=== PATIENT | male | born 2000 | race Caucasian/White ===

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

== ENCOUNTER 2019-03-22 14:23 | Emergency (ER) | payer OTHER ==
[~2019-03-22] VITALS: Ht 180.3 cm; Wt 79.4 kg
[2019-03-22 14:27] VITALS: BP 130/58
[2019-03-22] MEDS ORDERED: NAPROSYN500 MG PO (16:47)
[2019-03-22] MEDS ORDERED: MEDROL DOSEPAK4 MG PO (16:47)
[2019-03-22] MEDS ORDERED: METHOCARBAMOL500 M1 PO (16:47)
== END 2019-03-22 17:24 | disposition home or self-care (01) ==
LOC: ED 14:23
DX: S29.012A Strain of muscle and tendon of back wall of thorax, initial encounter (principal); Z88.1 Allergy status to other antibiotic agents; Z88.0 Allergy status to penicillin; X50.0XXA Overexertion from strenuous movement or load, initial encounter; Y93.89 Activity, other specified; Y92.69 Other specified industrial and construction area as the place of occurrence of the external cause; Y99.9 Unspecified external cause status

== ENCOUNTER → 2019-08-04 | Outpatient (CLI) | payer OTHER ==
[~2019-08-04] MED LIST: MEDROL DOSEPAK4 MG PO; METHOCARBAMOL500 M1 PO; NAPROSYN500 MG PO
== END | disposition home or self-care (01) ==
LOC: COVID19 15:01
DX: B34.9 Viral infection, unspecified (principal); Z03.818 Encounter for observation for suspected exposure to other biological agents ruled out; Z78.9 Other specified health status

== ENCOUNTER → 2020-12-29 | Outpatient (CLI) | payer OTHER | END | disposition home or self-care (01) | LOC: COVID19 17:18 | PROVIDERS: ATTEND Internal Medicine | DX: U07.1 COVID-19 (principal) ==